=== PATIENT | male | born 1940 | race Caucasian/White ===

== ENCOUNTER → 2017-01-07 | Outpatient (CLI) | payer MEDICARE, BC | LOC: MW.CHPS 08:00 | PROVIDERS: ATTEND Plastic Surgery | DX: L82.0 Inflamed seborrheic keratosis (principal); L57.0 Actinic keratosis | CPT/HCPCS: 17000; 17003; 17110; 99202 ==

== ENCOUNTER 2017-10-25 14:56 | Observation (INO) | payer MEDICARE, BC ==
[2017-10-25] MEDS ORDERED: Sodium Chloride 0.9% 10 ML Syringe FLUSH PRN (15:37)
[2017-10-25] MEDS ORDERED: Sodium Chloride 0.9% 2.5 ML Syringe FLUSH PRN (15:37)
[2017-10-25] MEDS ORDERED: Sodium Chloride 0.9% 1,000 ML IV ONE (15:38)
[2017-10-25] MEDS ORDERED: Ondansetron 4 MG/2 ML SDV IVPUSH ONE (15:38)
[2017-10-25] MEDS ORDERED: Albuterol/Ipratropium 3.0-0.5 MG/3 ML Neb Soln NEB ONE (15:39)
--- NOTE | 2017-10-25 15:44 | EDM.PDOC ---
ED HPI GENERAL MEDICAL PROBLEM - General Chief Complaint: Respiratory Problem Stated Complaint: COUGH/CONGESTION/DIARRHEA/WEAK Time Seen by Provider: 10/25/17 15:26 - History of Present Illness INITIAL COMMENTS - FREE TEXT/NARRATIVE: HISTORY AND PHYSICAL: History of present illness: The patient is a 76-year-old male who follows with Dr. Heath at [facility] and has a history of diabetes with oral and insulin medication use, hypertension, prostate cancer and lymphoma both of which are in remission after radiation and chemotherapy and who presents today with a history of multiple episodes of vomiting starting Wednesday, 3 days ago, which occurred mostly after coughing. The patient started developing a cough which would then spasm and trigger him to gag and vomit. He has not been eating and drinking very much because he is afraid of vomiting with the cough. The patient states that he really has not been vomiting much without the cough. He has some diffuse abdominal pain which started after the coughing episodes and he says that his muscles hurt from the cough and feels bloated and has not had any bowel issues until the last 24 hours when he has had copious amount of watery diarrhea without black or blood. Patient has had no urinary complaints no fever at home no runny nose and no sore throat. The cough is hacking and is productive of phlegm which is not green or bloody. He has been exposed to other friends and neighbors who have upper respiratory symptoms and GI problems. Please note that the patient has felt so weak today that he has done down to his hands and knees on 2 occasions without syncopal arising or completely falling to the ground. He has had no trauma with a result of these events and no pain as a result of these events. He has no headache. The patient did get his influenza shot in July Review of systems: As per history of present illness and below otherwise all systems reviewed and negative. Past medical history: As per history of present illness and as reviewed below otherwise noncontributory. Surgical history: As per history of present illness and as reviewed below otherwise noncontributory. Social history: No reported history of drug or alcohol abuse. Family history: As per history of present illness and as reviewed below otherwise noncontributory. Physical exam: Gen.: Well-developed well-nourished man speaking in full sentences without breathlessness vital signs of been noted by me. HEENT: Atraumatic, normocephalic, pupils reactive, negative for conjunctival pallor or scleral icterus, mucous membranes tacky, throat clear, neck supple, nontender, trachea midline. There is no cervical adenopathy or nuchal rigidity Lungs: Clear to auscultation with some coarse breath sounds at the bases bilaterally and some fine scattered wheezing without work of breathing, breath sounds equal bilaterally, chest nontender. Heart: S1S2, regular rhythm but slightly tachycardic rate of my evaluation and no overt murmurs Abdomen: Soft, nondistended, nontender. There is no rebound or guarding but there is tympany on percussion in the upper abdominal area Negative for masses or hepatosplenomegaly. Negative for costovertebral tenderness. Pelvis: Stable nontender. Genitourinary: Deferred. Rectal: Deferred. Extremities: Atraumatic, negative for cords or calf pain. Neurovascular unremarkable. Full range of motion without any defects or deficits Neuro: Awake, alert, oriented. Cranial nerves II through XII unremarkable. Cerebellum unremarkable. Motor and sensory unremarkable throughout. Exam nonfocal. On my exam in the bed the patient has normal motor 5/5 throughout Back: There are no midline step-offs tenderness defects of the cervical thoracic or lumbar spine and no soft tissue evidence of any trauma Diagnostics: CBC CMP UA urine culture if indicated lactic acid influenza orthostatic vitals stool for culture chest x-ray in one view abdominal x-ray Therapeutics: IV fluids Zofran and Phenergan with codeine Tamiflu Today's renal function was compared to labs performed on November 182016, proximally one year ago, which revealed a BUN of 32 and a creatinine 1.4. Today' s BUN of 42 and creatinine of 1.9 indicates a level of dehydration correlating with the patient's poor by mouth intake and vomiting and diarrhea. Patient and at bedside are aware of all testing results including the positive influenza A and the patient says that after the DuoNeb and the IV fluids he starting to feel somewhat better. He has not produced a urine or a stool sample as of yet for testing. The patient and both feel comfortable with going home and I discussed this case with Dr. Lundy at 1721 PM and he accepts the patient for observation. Will give the patient a dose of Phenergan with codeine for the cough as well as Tamiflu. Impression: Influenza A positive, posttussive emesis with dehydration, diarrhea Definitive disposition and diagnosis as appropriate pending reevaluation and review of above. - Related Data Allergies Allergy/AdvReac Type Severity Reaction Status Date / Time No Known Allergies Allergy Verified 10/25/17 15:27 Past Medical History Cardiovascular History: Reports: High Cholesterol, Hypertension Respiratory History: Reports: Sleep Apnea Other Respiratory History: uses cpap Genitourinary History: Reports: Other (See Below) Other Genitourinary History: ureteral stent Endocrine/Metabolic History: Reports: Diabetes, Type II Oncologic (Cancer) History: Reports: Other (See Below) Other Oncologic History: prostate CA, Follicular Lymphoma - Infectious Disease History Infectious Disease History: Reports: Chicken Pox, Mumps Social & Family History - Family History Family Medical History: Noncontributory - Tobacco Use Smoking Status *Q: Never Smoker - Caffeine Use Caffeine Use: Reports: Coffee - Recreational Drug Use Recreational Drug Use: No ED ROS GENERAL - Review of Systems Review Of Systems: ROS reveals no pertinent complaints other than HPI. ED EXAM, GENERAL - Physical Exam Exam: See Below (See dictation) Course - Vital Signs Last Recorded V/S: Last Vital Signs Temp 35.8 C 10/25/17 15:22 Pulse 104 H 10/25/17 15:22 Resp 18 10/25/17 15:22 BP 115/69 10/25/17 15:22 Pulse Ox 98 10/25/17 15:37 Orthostatic Blood Pressure [ 117/66 Standing] Orthostatic Blood Pressure [ 120/69 Supine] - Orders/Labs/Meds Orders: Active Orders 24 hr Category Date Time Status Blood Glucose Check, Bedside [RC] ONETIME Care 10/25/17 15:37 Active Cardiac Monitoring [RC] . DIRECTED Care 10/25/17 15:37 Active Orthostatic Vital Signs [RC] ASDIRECTED Care 10/25/17 15:39 Active Oxygen Therapy, ED [RC] ASDIRECTED Care 10/25/17 15:37 Active Pulse Oximetry [RC] ASDIRECTED Care 10/25/17 15:37 Active RT Aerosol Therapy [RC] ASDIRECTED Care 10/25/17 15:40 Active Abdomen 1V Upright [CR] Stat Exams 10/25/17 15:38 Taken Chest 2V [CR] Stat Exams 10/25/17 15:38 Taken CULTURE STOOL + CAMPY+SHIGATOX [RM] Stat Lab 10/25/17 15:37 Uncollected UA W/MICROSCOPIC [URIN] Stat Lab 10/25/17 15:37 Uncollected Sodium Chloride 0.9% [Saline Flush] Med 10/25/17 15:37 Active 10 ml FLUSH ASDIRECTED PRN Sodium Chloride 0.9% [Saline Flush] Med 10/25/17 15:37 Active 2.5 ml FLUSH ASDIRECTED PRN Saline Lock Insert [OM.PC] Stat Oth 10/25/17 15:37 Ordered Medication Orders Sodium Chloride (Saline Flush) 10 ml FLUSH ASDIRECTED PRN PRN Reason: Keep Vein Open Last Admin: 10/25/17 16:11 Dose: 10 ml Sodium Chloride (Saline Flush) 2.5 ml FLUSH ASDIRECTED PRN PRN Reason: Keep Vein Open Last Admin: 10/25/17 16:11 Dose: 2.5 ml Labs: Laboratory Tests 10/25/17 10/25/17 10/25/17 Range/Units 15:40 15:46 15:46 WBC 4.15 (4.0-11.0) K/uL RBC 4.95 (4.50-5.90) M/uL Hgb 15.2 (13.0-17.0) g/dL Hct 43.6 (38.0-50.0) % MCV 88.1 (80.0-98.0) fL MCH 30.7 (27.0-32.0) pg MCHC 34.9 (31.0-37.0) g/dL RDW Std Deviation 44.5 (28.0-62.0) fl RDW Coeff of [place] 14 (11.0-15.0) % Plt Count 161 (150-400) K/uL MPV 9.80 (7.40-12.00) fL Add Manual Diff YES Neutrophils % (Manual) 63 (48.0-80.0) % Band Neutrophils % 1 % Lymphocytes % (Manual) 20 (16.0-40.0) % Monocytes % (Manual) 13 (0.0-15.0) % Eosinophils % (Manual) 1 (0.0-7.0) % Basophils % (Manual) 2 H (0.0-1.5) % Nucleated RBC % 0.0 /100WBC Absolute Seg Neuts 2.6 (1.4-5.7) Band Neutrophils # 0 Lymphocytes # (Manual) 0.8 (0.6-2.4) Monocytes # (Manual) 0.5 (0.0-0.8) Eosinophils # (Manual) 0.0 (0.0-0.7) Basophils # (Manual) 0.1 (0.0-0.1) Nucleated RBCs # 0 K/uL Lactate (0.20-2.00) mmol/L Sodium 135 L (136-146) mmol/L Potassium 4.3 (3.5-5.1) mmol/L Chloride 102 (98-110) mmol/L Carbon Dioxide 19 L (21-31) mmol/L BUN 42 H (6.0-23.0) mg/dL Creatinine 1.9 H (0.6-1.5) mg/dL Est Cr Clr Drug Dosing 36.30 mL/min Estimated GFR (MDRD) 34.6 ml/min Glucose 152 H (60-110) mg/dL POC Glucose 131 H (60-110) mg/dL Calcium 11.1 H (8.8-10.8) mg/dL Total Bilirubin 0.6 (0.1-1.5) mg/dL AST 49 H (5-40) IU/L ALT 38 (8-54) IU/L Alkaline Phosphatase 44 (40-150) Total Protein 7.6 (6.0-8.0) g/dL Albumin 4.1 (3.4-4.8) g/dL Globulin 3.5 (2.0-3.5) g/dL Albumin/Globulin Ratio 1.2 L (1.3-2.8) 10/25/17 Range/Units 15:46 WBC (4.0-11.0) K/uL RBC (4.50-5.90) M/uL Hgb (13.0-17.0) g/dL Hct (38.0-50.0) % MCV (80.0-98.0) fL MCH (27.0-32.0) pg MCHC (31.0-37.0) g/dL RDW Std Deviation (28.0-62.0) fl RDW Coeff of [place] (11.0-15.0) % Plt Count (150-400) K/uL MPV (7.40-12.00) fL Add Manual Diff Neutrophils % (Manual) (48.0-80.0) % Band Neutrophils % % Lymphocytes % (Manual) (16.0-40.0) % Monocytes % (Manual) (0.0-15.0) % Eosinophils % (Manual) (0.0-7.0) % Basophils % (Manual) (0.0-1.5) % Nucleated RBC % /100WBC Absolute Seg Neuts (1.4-5.7) Band Neutrophils # Lymphocytes # (Manual) (0.6-2.4) Monocytes # (Manual) (0.0-0.8) Eosinophils # (Manual) (0.0-0.7) Basophils # (Manual) (0.0-0.1) Nucleated RBCs # K/uL Lactate 1.3 (0.20-2.00) mmol/L Sodium (136-146) mmol/L Potassium (3.5-5.1) mmol/L Chloride (98-110) mmol/L Carbon Dioxide (21-31) mmol/L BUN (6.0-23.0) mg/dL Creatinine (0.6-1.5) mg/dL Est Cr Clr Drug Dosing mL/min Estimated GFR (MDRD) ml/min Glucose (60-110) mg/dL POC Glucose (60-110) mg/dL Calcium (8.8-10.8) mg/dL Total Bilirubin (0.1-1.5) mg/dL AST (5-40) IU/L ALT (8-54) IU/L Alkaline Phosphatase (40-150) Total Protein (6.0-8.0) g/dL Albumin (3.4-4.8) g/dL Globulin (2.0-3.5) g/dL Albumin/Globulin Ratio (1.3-2.8) Meds: Medications Generic Name Dose Route Start Last Admin Trade Name Freq PRN Reason Stop Dose Admin Sodium Chloride 10 ml 10/25/17 15:37 10/25/17 16:11 Saline Flush FLUSH 10 ml ASDIRECTED PRN Administration Keep Vein Open Sodium Chloride 2.5 ml 10/25/17 15:37 10/25/17 16:11 Saline Flush FLUSH 2.5 ml ASDIRECTED PRN Administration Keep Vein Open Discontinued Medications Generic Name Dose Route Start Last Admin Trade Name Freq PRN Reason Stop Dose Admin Albuterol/Ipratropium 3 ml 10/25/17 15:39 10/25/17 16:10 Duoneb 3.0-0.5 Mg/3 Ml NEB 10/25/17 15:40 3 ml ONETIME ONE Administration Sodium Chloride 1,000 mls @ 999 mls/hr 10/25/17 15:38 10/25/17 16:11 Normal Saline IV 10/25/17 16:38 999 mls/hr STAT ONE Administration Ondansetron HCl 4 mg 10/25/17 15:38 10/25/17 16:11 Zofran IVPUSH 10/25/17 15:39 4 mg ONETIME ONE Administration Oseltamivir Phosphate 75 mg 10/25/17 17:17 Tamiflu PO 10/25/17 17:18 ONETIME ONE Promethazine HCl/Codeine 10 ml 10/25/17 17:17 Phenergan With Codeine PO 10/25/17 17:18 ONETIME ONE Departure - Departure Time of Disposition: 17:24 Disposition: Refer to Observation Condition: Good Clinical Impression: Diarrhea, Post-tussive vomiting, Influenza A, Dehydration - Discharge Information Referrals: Anibal Heath MD [Primary Care Provider] - Forms: ED Department Discharge - My Orders Last 24 Hours: My Active Orders 10/25/17 15:37 Blood Glucose Check, Bedside [RC] ONETIME Cardiac Monitoring [RC] . DIRECTED Oxygen Therapy, ED [RC] ASDIRECTED Pulse Oximetry [RC] ASDIRECTED CULTURE STOOL + CAMPY+SHIGATOX [RM] Stat UA W/MICROSCOPIC [URIN] Stat Sodium Chloride 0.9% [Saline Flush] 10 ml FLUSH ASDIRECTED PRN Sodium Chloride 0.9% [Saline Flush] 2.5 ml FLUSH ASDIRECTED PRN Saline Lock Insert [OM.PC] Stat 10/25/17 15:38 Abdomen 1V Upright [CR] Stat Chest 2V [CR] Stat 10/25/17 15:39 Orthostatic Vital Signs [RC] ASDIRECTED 10/25/17 15:40 RT Aerosol Therapy [RC] ASDIRECTED - Assessment/Plan Last 24 Hours: My Active Orders 10/25/17 15:37 Blood Glucose Check, Bedside [RC] ONETIME Cardiac Monitoring [RC] . DIRECTED Oxygen Therapy, ED [RC] ASDIRECTED Pulse Oximetry [RC] ASDIRECTED CULTURE STOOL + CAMPY+SHIGATOX [RM] Stat UA W/MICROSCOPIC [URIN] Stat Sodium Chloride 0.9% [Saline Flush] 10 ml FLUSH ASDIRECTED PRN Sodium Chloride 0.9% [Saline Flush] 2.5 ml FLUSH ASDIRECTED PRN Saline Lock Insert [OM.PC] Stat 10/25/17 15:38 Abdomen 1V Upright [CR] Stat Chest 2V [CR] Stat 10/25/17 15:39 Orthostatic Vital Signs [RC] ASDIRECTED 10/25/17 15:40 RT Aerosol Therapy [RC] ASDIRECTED
[2017-10-25] MEDS ORDERED: Codeine/Promethazine 10-6.25 MG/5 ML Syrup 5 ML UD Cup PO ONE (17:17)
[2017-10-25] MEDS ORDERED: Oseltamivir 75 MG Cap PO ONE (17:17)
[2017-10-25] MEDS ORDERED: Sodium Chloride 0.9% 1,000 ML IV SCH (17:45)
[2017-10-25] MEDS ORDERED: Ondansetron 4 MG/2 ML SDV IVPUSH PRN ×2 (20:20→23:02)
[2017-10-25] MEDS ORDERED: Insulin Glargine,Human Rec. Analog 100 Units/ML 3 ML Pen SUBCUT SCH (21:00)
[2017-10-25] MEDS: Metoprolol Tartrate 50 MG Tab PO SCH (21:47)
[2017-10-25] MEDS: Sodium Chloride 0.9% 1,000 ML IV SCH (21:51)
--- NOTE | 2017-10-25 23:27 | PCM.HP ---
H&P History of Present Illness - General Admit Problem/Dx: Admission Diagnosis/Problem Admission Diagnosis/Problem Dehydration - History of Present Illness Initial Comments - Free Text/Narative: 76 yo male who presents with three day history of cough, fever and myalgias. Patient reports cough spasms so severe it causes him to vomiting. He reports poor apatite and has not been drinking much. - Related Data Allergies/Adverse Reactions: Allergies Allergy/AdvReac Type Severity Reaction Status Date / Time No Known Allergies Allergy Verified 10/25/17 15:27 Home Medications: Home Meds Aspirin [Adult Low Dose Aspirin EC] 81 mg PO DAILY 10/25/17 [History] Gemfibrozil [Lopid] 600 mg PO BID 10/25/17 [History] Glimepiride [Amaryl] 2 mg PO BIDMEALS 10/25/17 [History] Insulin Glarg,Human.Rec.Analog [LantUS Solostar] 36 units SUBCUT BEDTIME [History] Lisinopril [Zestril] 20 mg PO DAILY 10/25/17 [History] Metoprolol Tartrate [Lopressor] 50 mg PO BID 10/25/17 [History] Kiel-3/DHA/Epa/Fish Oil [Fish Oil 1,000 mg Softgel] 1,000 mg PO DAILY 10/25/17 [History] Omeprazole Magnesium [Prilosec Otc] 20 mg PO DAILY 10/25/17 [History] metFORMIN HCl [Glucophage] 1,000 mg PO BID 10/25/17 [History] Past Medical History HEENT History: Reports: Other (See Below) Other HEENT History: uses contacts Cardiovascular History: Reports: High Cholesterol, Hypertension Respiratory History: Reports: Sleep Apnea Other Respiratory History: uses cpap Genitourinary History: Reports: Other (See Below) Other Genitourinary History: ureteral stent Endocrine/Metabolic History: Reports: Diabetes, Type II Oncologic (Cancer) History: Reports: Other (See Below) Other Oncologic History: prostate CA, Follicular Lymphoma - Infectious Disease History Infectious Disease History: Reports: Chicken Pox, Mumps Social & Family History - Family History Family Medical History: Noncontributory - Tobacco Use Smoking Status *Q: Never Smoker Second Hand Smoke Exposure: No - Caffeine Use Caffeine Use: Reports: Coffee - Recreational Drug Use Recreational Drug Use: No H&P Review of Systems - Review of Systems: Review Of Systems: ROS reveals no pertinent complaints other than HPI. Exam - Exam Exam: See Below - Vital Signs Vital Signs: Last Vital Signs Temp 37.1 C 10/25/17 21:00 Pulse 110 H 10/25/17 21:47 Resp 18 10/25/17 21:00 BP 113/60 10/25/17 21:47 Pulse Ox 94 L 10/25/17 21:00 Weight: 108.4 kg - Exam General: Alert, Oriented HEENT: Mucosa Moist & [place] Lungs: Clear to Auscultation, Normal Respiratory Effort Cardiovascular: Regular Rate, Regular Rhythm GI/Abdominal Exam: Soft, Non-Tender Extremities: No Pedal Edema Skin: Warm, Dry, Intact Neurological: No: Focal Deficit - Patient Data Lab Results Last 24 hrs: Laboratory Results - last 24 hr 10/25/17 10/25/17 Range/Units 21:30 21:32 POC Glucose 71 (60-110) mg/dL Urine Color YELLOW Urine Appearance CLEAR Urine pH 5.0 (5.0-8.0) Ur Specific [place] 1.025 (1.001-1.035) Urine Protein TRACE (NEGATIVE) mg/dL Urine Glucose (UA) NEGATIVE (NEGATIVE) mg/dL Urine Ketones NEGATIVE (NEGATIVE) mg/dL Urine Occult Blood TRACE-INTACT (NEGATIVE) Urine Nitrite NEGATIVE (NEGATIVE) Urine Bilirubin NEGATIVE (NEGATIVE) Urine Urobilinogen 0.2 (<2.0) EU/dL Ur Leukocyte Esterase NEGATIVE (NEGATIVE) Urine RBC 0-2 (0-2/HPF) Urine WBC 0-2 (0-5/HPF) Ur Epithelial Cells RARE (NONE-FEW) Amorphous Sediment FEW (NEGATIVE) Urine Bacteria FEW (NEGATIVE) Result Diagrams: 10/25/17 15:46 10/25/17 15:46 *Q Meaningful Use (ADM) - VTE *Q VTE Criteria *Q: - Stroke *Q Stroke Criteria *Q: - AMI *Q AMI Criteria *Q: Problem List Initiated/Reviewed/Updated: Yes Orders Last 24hrs: Active Orders 24 hr Category Date Time Status Blood Glucose Check, Bedside [RC] TIDAC Care 10/25/17 20:23 Active Oxygen Therapy [RC] PRN Care 10/25/17 23:24 Ordered VTE/DVT Education [RC] PER UNIT ROUTINE Care 10/25/17 23:24 Ordered Vital Signs [RC] Q4H Care 10/25/17 23:24 Ordered ADA Diabetic [[place] [employer] Diet] [DIET Diet 10/26/17 Breakfast Active ] BMP [BASIC METABOLIC PANEL,BMP] [CHEM] Routine Lab 10/26/17 05:00 Ordered CBC WITH AUTO DIFF [HEME] Routine Lab 10/26/17 05:00 Ordered Aspirin [Halfprin] Med 10/26/17 09:00 Active 81 mg PO DAILY Fish Oil/Kiel-3 Fatty Acids [Fish Oil] Med 10/26/17 09:00 Active 1 gm PO DAILY Gemfibrozil [Lopid] Med 10/26/17 08:00 Active 600 mg PO BIDMEALS Heparin Sodium Med 10/26/17 09:00 Ordered 5,000 units SUBCUT Q12HR Insulin Aspart [NovoLOG] Med 10/26/17 07:30 Active See Protocol SUBCUT TIDAC Insulin Glarg,Human.Rec.Analog [LantUS Solostar] Med 10/25/17 21:00 Active 15 units SUBCUT BEDTIME Lisinopril [Prinivil] Med 10/26/17 09:00 Active 20 mg PO DAILY Metoprolol Tartrate [Lopressor] Med 10/25/17 21:00 Active 50 mg PO BID Omeprazole Med 10/26/17 09:00 Active 20 mg PO DAILY Ondansetron [Zofran] Med 10/25/17 23:02 Active 4 mg IVPUSH Q4H PRN Oseltamivir [Tamiflu] Med 10/26/17 06:00 Pending 30 mg PO BID Sodium Chloride 0.9% [Normal Saline] 1,000 ml Med 10/25/17 20:30 Active IV ASDIRECTED Resuscitation Status Routine Resus Stat 10/25/17 23:24 Ordered Medication Orders Aspirin (Halfprin) 81 mg PO DAILY [facility] Fish Oil (Fish Oil) 1 gm PO DAILY [facility] Gemfibrozil (Lopid) 600 mg PO BIDMEALS [facility] Sodium Chloride (Normal Saline) 1,000 mls @ 125 mls/hr IV ASDIRECTED [facility]AUGHN Last Admin: 10/25/17 21:51 Dose: 125 mls/hr Insulin Aspart (Novolog) 0 unit SUBCUT TIDAC [facility]AUGHN PRN Reason: Protocol Insulin Glargine (Lantus Solostar) 15 units SUBCUT BEDTIME [facility]AUGHN Last Admin: 10/25/17 21:46 Dose: 15 units Lisinopril (Prinivil) 20 mg PO DAILY [facility] Metoprolol Tartrate (Lopressor) 50 mg PO BID [facility] Last Admin: 10/25/17 21:47 Dose: 50 mg Omeprazole (Omeprazole) 20 mg PO DAILY [facility] Ondansetron HCl (Zofran) 4 mg IVPUSH Q4H PRN PRN Reason: Nausea/Vomiting Oseltamivir Phosphate (Tamiflu) 30 mg PO BID [facility] Sodium Chloride (Saline Flush) 10 ml FLUSH ASDIRECTED PRN PRN Reason: Keep Vein Open Last Admin: 10/25/17 16:11 Dose: 10 ml Sodium Chloride (Saline Flush) 2.5 ml FLUSH ASDIRECTED PRN PRN Reason: Keep Vein Open Last Admin: 10/25/17 16:11 Dose: 2.5 ml Assessment/Plan Comment:: 76 yo male admitted with influenza. We will monitor overnight, give tamiflu and hydrate with IV fluids.
[2017-10-26] MEDS: Sodium Chloride 0.9% 1,000 ML IV SCH ×2 (01:02→08:29)
[2017-10-26] MEDS: Benzonatate 100 MG Cap PO PRN ×2 (02:39→08:28)
[2017-10-26] MEDS ORDERED: Oseltamivir 75 MG Cap PO SCH (06:00)
[2017-10-26] MEDS ORDERED: Gemfibrozil 600 MG Tab PO SCH (08:00)
[2017-10-26] MEDS: Insulin Aspart 100 Units/ML 3 ML Pen SUBCUT SCH ×2 (08:01→12:47)
[2017-10-26] MEDS: Metoprolol Tartrate 50 MG Tab PO SCH (08:04)
[2017-10-26] MEDS ORDERED: Lisinopril 10 MG Tab PO SCH (09:00)
[2017-10-26] MEDS ORDERED: Fish Oil/Omega-3 Fatty Acids 1 Gm Cap PO SCH (09:00)
[2017-10-26] MEDS ORDERED: Omeprazole 20 MG Cap.CR PO SCH (09:00)
[2017-10-26] MEDS ORDERED: Oseltamivir Phosphate 30 MG Capsule PO SCH (09:00)
[2017-10-26] MEDS ORDERED: Aspirin 81 MG Tab.EC PO SCH (09:00)
[2017-10-26] MEDS ORDERED: Heparin Sodium 5,000 Units/ML Vial SUBCUT SCH (09:00)
--- NOTE | 2017-10-26 12:07 | PCM.DCSUM1 ---
Discharge Summary - Hospital Course Brief History: 76 [facility] type 2, HTN, and CKD presented to the ED with three day history of cough, fever and myalgias. Patient reports cough spasms so severe it causes him to vomit. He reports poor appetite and has not been drinking much. Reports much of his family around his has been sick as well. Labwork WNL in ED. Influenza A positive. He was started on Tamiflu and admitted due to dehydration and FADUMO on CKD and influenza positive. - Discharge Data Discharge Date: 10/26/17 Discharge Disposition: Home, Self-Care 01 Condition: Good - Discharge Diagnosis/Problem(s) (1) [id number] kidney injury SNOMED Code(s): 170844498 ICD Code: N17.9 - ACUTE KIDNEY FAILURE, UNSPECIFIED; N18.9 - CHRONIC KIDNEY DISEASE, UNSPECIFIED Status: Acute Current Visit: Yes (2) Dehydration SNOMED Code(s): 27376000 ICD Code: E86.0 - DEHYDRATION Status: Acute Current Visit: Yes (3) Diarrhea SNOMED Code(s): 77115036 ICD Code: R19.7 - DIARRHEA, UNSPECIFIED Status: Acute Current Visit: Yes (4) Influenza A SNOMED Code(s): 511066112 ICD Code: J10.1 - FLU DUE TO OTH IDENT INFLUENZA VIRUS W OTH RESP MANIFEST Status: Acute Current Visit: Yes (5) Post-tussive vomiting SNOMED Code(s): 661387983 ICD Code: R11.10 - VOMITING, UNSPECIFIED Status: Acute Current Visit: Yes - Patient Instructions Diet: Heart Healthy Diet, Drink 8-10+ Glasses/Day Activity: Rest and Relax Today (For Next 3-5 days) Driving: May Drive Today Showering/Bathing: May Shower Notify Provider of: Fever, Increased Pain, Swelling and Redness, Drainage, Nausea and/or Vomiting - Discharge Plan Prescriptions/Med Rec: Benzonatate [Tessalon Perles] 100 mg PO TID PRN #30 cap PRN Reason: Cough Oseltamivir [Tamiflu] 30 mg PO BID #11 cap Home Medications: Home Meds Aspirin [Adult Low Dose Aspirin EC] 81 mg PO DAILY 10/25/17 [History] Gemfibrozil [Lopid] 600 mg PO BID 10/25/17 [History] Glimepiride [Amaryl] 2 mg PO BIDMEALS 10/25/17 [History] Insulin Glarg,Human.Rec.Analog [LantUS Solostar] 36 units SUBCUT BEDTIME [History] Lisinopril [Zestril] 20 mg PO DAILY 10/25/17 [History] Metoprolol Tartrate [Lopressor] 50 mg PO BID 10/25/17 [History] [place]-3/DHA/Epa/Fish Oil [Fish Oil 1,000 mg Softgel] 1,000 mg PO DAILY 10/25/17 [History] Omeprazole Magnesium [Prilosec Otc] 20 mg PO DAILY 10/25/17 [History] metFORMIN HCl [Glucophage] 1,000 mg PO BID 10/25/17 [History] Benzonatate [Tessalon Perles] 100 mg PO TID PRN #30 cap 10/26/17 [Rx] Oseltamivir [Tamiflu] 30 mg PO BID #11 cap 10/26/17 [Rx] Patient Handouts: Influenza, Adult, [id number]-Kwsj, Oseltamivir capsules, Benzonatate capsules Referrals: Anibal Heath MD [Primary Care Provider] - 11/04/17 12:30 pm - Discharge Summary/Plan Comment DC Time >30 min.: No Discharge Summary/Plan Comment: Discharge Diagnoses: Influenza A positive General malaise HTN DM Type 2 CKD, baseline BUN 20s and Cr 1.4-1.6 Dawit was admitted and monitored overnight. BUN and Cr improved this morning with IVF hydration. VS are stable and patient feeling better today. He reports feeling a little stronger. He is ready for discharge home. He was encouraged to rest and relax for next 3-5 days as he is healing from Influenza. He will be prescribed Tamiflu 30 mg BID for 5 more days and given Tessalon Pearls to help with cough. He was eating much better today and keep fluids down. No further vomiting. He was encouraged to drink plenty of fluids. He will be set up to follow up with PCP, Dr Heath in 1 week to insure he is improving appropriately. He is to return to clinic or ED if concerns should arise. - General Info Date of Service: 10/26/17 Admission Dx/Problem (Free Text: Admission Diagnosis/Problem Admission Diagnosis/Problem Dehydration Subjective Update: Feeling better this morning, has some strength back. Cough continues but improved. No further diarrhea. No abdominal pain. Satting well on RA. No chest pain or SOB Functional Status: Reports: Pain Controlled, Tolerating Diet, Ambulating, Urinating - Review of Systems General: Reports: Fatigue, Malaise. Denies: Fever HEENT: Reports: Sinus Congestion, Sore Throat. Denies: Visual Changes Pulmonary: Reports: Cough. Denies: Shortness of Breath, Sputum, Wheezing Cardiovascular: Reports: No Symptoms. Denies: Chest Pain, Dyspnea on Exertion, Edema, Lightheadedness Gastrointestinal: Reports: No Symptoms. Denies: Abdominal Pain, Diarrhea, Nausea, Vomiting Genitourinary: Reports: No Symptoms. Denies: Dysuria, Frequency, Burning Musculoskeletal: Reports: No Symptoms. Denies: Neck Pain Neurological: Reports: No Symptoms. Denies: Confusion Psychiatric: Reports: No Symptoms. Denies: Confusion - Patient Data Vitals - Most Recent: Last Vital Signs Temp 97.6 F 10/26/17 11:24 Pulse 78 10/26/17 11:24 Resp 20 10/26/17 11:24 BP 114/64 10/26/17 11:24 Pulse Ox 97 10/26/17 11:24 Weight - Most Recent: 108.4 kg I&O - Last 24 hours: Intake & Output 10/25/17 10/26/17 10/26/17 22:59 06:59 14:59 Intake Total 1917 Output Total 250 Balance 1667 Lab Results - Last 24 hrs: Laboratory Results - last 24 hr 10/25/17 10/25/17 10/26/17 Range/Units 21:30 21:32 04:51 WBC 3.09 L (4.0-11.0) K/uL RBC 4.38 L (4.50-5.90) M/uL Hgb 13.0 (13.0-17.0) g/dL Hct 38.7 (38.0-50.0) % MCV 88.4 (80.0-98.0) fL MCH 29.7 (27.0-32.0) pg MCHC 33.6 (31.0-37.0) g/dL RDW Std Deviation 44.7 (28.0-62.0) fl RDW Coeff of [place] 14 (11.0-15.0) % Plt Count 150 (150-400) K/uL MPV 9.70 (7.40-12.00) fL Neut % (Auto) 59.9 (48.0-80.0) % Lymph % (Auto) 25.2 (16.0-40.0) % Terrell % (Auto) 13.9 (0.0-15.0) % Eos % (Auto) 1.0 (0.0-7.0) % Baso % (Auto) 0.0 (0.0-1.5) % Neut # (Auto) 1.9 (1.4-5.7) K/uL Lymph # (Auto) 0.8 (0.6-2.4) K/uL Terrell # (Auto) 0.4 (0.0-0.8) K/uL Eos # (Auto) 0.0 (0.0-0.7) K/uL Baso # (Auto) 0.0 (0.0-0.1) K/uL Nucleated RBC % 0.0 /100WBC Nucleated RBCs # 0 K/uL Sodium (136-146) mmol/L Potassium (3.5-5.1) mmol/L Chloride (98-110) mmol/L Carbon Dioxide (21-31) mmol/L BUN (6.0-23.0) mg/dL Creatinine (0.6-1.5) mg/dL Est Cr Clr Drug Dosing mL/min Estimated GFR (MDRD) ml/min Glucose (60-110) mg/dL POC Glucose 71 (60-110) mg/dL Calcium (8.8-10.8) mg/dL Urine Color YELLOW Urine Appearance CLEAR Urine pH 5.0 (5.0-8.0) Ur Specific [place] 1.025 (1.001-1.035) Urine Protein TRACE (NEGATIVE) mg/dL Urine Glucose (UA) NEGATIVE (NEGATIVE) mg/dL Urine Ketones NEGATIVE (NEGATIVE) mg/dL Urine Occult Blood TRACE-INTACT (NEGATIVE) Urine Nitrite NEGATIVE (NEGATIVE) Urine Bilirubin NEGATIVE (NEGATIVE) Urine Urobilinogen 0.2 (<2.0) EU/dL Ur Leukocyte Esterase NEGATIVE (NEGATIVE) Urine RBC 0-2 (0-2/HPF) Urine WBC 0-2 (0-5/HPF) Ur Epithelial Cells RARE (NONE-FEW) Amorphous Sediment FEW (NEGATIVE) Urine Bacteria FEW (NEGATIVE) 10/26/17 10/26/17 10/26/17 Range/Units 04:51 06:12 10:59 WBC (4.0-11.0) K/uL RBC (4.50-5.90) M/uL Hgb (13.0-17.0) g/dL Hct (38.0-50.0) % MCV (80.0-98.0) fL MCH (27.0-32.0) pg MCHC (31.0-37.0) g/dL RDW Std Deviation (28.0-62.0) fl RDW Coeff of [place] (11.0-15.0) % Plt Count (150-400) K/uL MPV (7.40-12.00) fL Neut % (Auto) (48.0-80.0) % Lymph % (Auto) (16.0-40.0) % Terrell % (Auto) (0.0-15.0) % Eos % (Auto) (0.0-7.0) % Baso % (Auto) (0.0-1.5) % Neut # (Auto) (1.4-5.7) K/uL Lymph # (Auto) (0.6-2.4) K/uL Terrell # (Auto) (0.0-0.8) K/uL Eos # (Auto) (0.0-0.7) K/uL Baso # (Auto) (0.0-0.1) K/uL Nucleated RBC % /100WBC Nucleated RBCs # K/uL Sodium 135 L (136-146) mmol/L Potassium 4.1 (3.5-5.1) mmol/L Chloride 104 (98-110) mmol/L Carbon Dioxide 21 (21-31) mmol/L BUN 38 H (6.0-23.0) mg/dL Creatinine 1.6 H (0.6-1.5) mg/dL Est Cr Clr Drug Dosing 41.18 mL/min Estimated GFR (MDRD) 42.1 ml/min Glucose 167 H (60-110) mg/dL POC Glucose 156 H 179 H (60-110) mg/dL Calcium 9.8 (8.8-10.8) mg/dL Urine Color Urine Appearance Urine pH (5.0-8.0) Ur Specific [place] (1.001-1.035) Urine Protein (NEGATIVE) mg/dL Urine Glucose (UA) (NEGATIVE) mg/dL Urine Ketones (NEGATIVE) mg/dL Urine Occult Blood (NEGATIVE) Urine Nitrite (NEGATIVE) Urine Bilirubin (NEGATIVE) Urine Urobilinogen (<2.0) EU/dL Ur Leukocyte Esterase (NEGATIVE) Urine RBC (0-2/HPF) Urine WBC (0-5/HPF) Ur Epithelial Cells (NONE-FEW) Amorphous Sediment (NEGATIVE) Urine Bacteria (NEGATIVE) Med Orders - Current: Current Medications Aspirin (Halfprin) 81 mg PO DAILY [facility] Last Admin: 10/26/17 08:04 Dose: 81 mg Benzonatate (Tessalon Perles) 100 mg PO Q6H PRN PRN Reason: Cough Last Admin: 10/26/17 08:28 Dose: 100 mg Fish Oil (Fish Oil) 1 gm PO DAILY [facility] Last Admin: 10/26/17 08:04 Dose: 1 gm Gemfibrozil (Lopid) 600 mg PO BIDMEALS [facility] Last Admin: 10/26/17 08:25 Dose: 600 mg Heparin Sodium (Porcine) (Heparin Sodium) 5,000 units SUBCUT Q12HR [facility] Last Admin: 10/26/17 08:07 Dose: 5,000 units Sodium Chloride (Normal Saline) 1,000 mls @ 125 mls/hr IV ASDIRECTED [facility] Last Admin: 10/26/17 08:29 Dose: 125 mls/hr Insulin Aspart (Novolog) 0 unit SUBCUT TIDAC [facility] PRN Reason: Protocol Last Admin: 10/26/17 08:01 Dose: 1 unit Insulin Glargine (Lantus Solostar) 15 units SUBCUT BEDTIME [facility] Last Admin: 10/25/17 21:46 Dose: 15 units Lisinopril (Prinivil) 20 mg PO DAILY [facility] Last Admin: 10/26/17 08:05 Dose: 20 mg Metoprolol Tartrate (Lopressor) 50 mg PO BID [facility] Last Admin: 10/26/17 08:04 Dose: 50 mg Omeprazole (Omeprazole) 20 mg PO DAILY [facility] Last Admin: 10/26/17 08:04 Dose: 20 mg Ondansetron HCl (Zofran) 4 mg IVPUSH Q4H PRN PRN Reason: Nausea/Vomiting Oseltamivir Phosphate (Oseltamivir Phosphate) 30 mg PO BID [facility] Last Admin: 10/26/17 08:04 Dose: 30 mg Sodium Chloride (Saline Flush) 10 ml FLUSH ASDIRECTED PRN PRN Reason: Keep Vein Open Last Admin: 10/25/17 16:11 Dose: 10 ml Sodium Chloride (Saline Flush) 2.5 ml FLUSH ASDIRECTED PRN PRN Reason: Keep Vein Open Last Admin: 10/25/17 16:11 Dose: 2.5 ml Discontinued Medications Albuterol/Ipratropium (Duoneb 3.0-0.5 Mg/3 Ml) 3 ml NEB ONETIME ONE Stop: 10/25/17 15:40 Last Admin: 10/25/17 16:10 Dose: 3 ml Sodium Chloride (Normal Saline) 1,000 mls @ 999 mls/hr IV STAT ONE Stop: 10/25/17 16:38 Last Admin: 10/25/17 16:11 Dose: 999 mls/hr Sodium Chloride (Normal Saline) 1,000 mls @ 125 mls/hr IV ASDIRECTED [facility] Last Admin: 10/25/17 17:41 Dose: 125 mls/hr Ondansetron HCl (Zofran) 4 mg IVPUSH ONETIME ONE Stop: 10/25/17 15:39 Last Admin: 10/25/17 16:11 Dose: 4 mg Ondansetron HCl (Zofran) 4 mg IVPUSH Q3H PRN PRN Reason: Nausea/Vomiting Oseltamivir Phosphate (Tamiflu) 75 mg PO ONETIME ONE Stop: 10/25/17 17:18 Last Admin: 10/25/17 17:42 Dose: 75 mg Oseltamivir Phosphate (Tamiflu) 75 mg PO BID [facility] Promethazine HCl/Codeine (Phenergan With Codeine) 10 ml PO ONETIME ONE Stop: 10/25/17 17:18 Last Admin: 10/25/17 18:19 Dose: 10 ml - Exam Quality Assessment: Denies: Supplemental Oxygen General: Reports: Alert, Oriented, Cooperative, No Acute Distress Neck: Reports: Supple Lungs: Reports: Clear to Auscultation, Normal Respiratory Effort Cardiovascular: Reports: Regular Rate, Regular Rhythm GI/Abdominal Exam: Normal Bowel Sounds, Soft, Non-Tender, No Organomegaly, No Distention, No Abnormal Bruit, No Mass, Pelvis Stable Back Exam: Reports: Normal Inspection, Full Range of Motion Extremities: Normal Inspection, Normal Range of Motion, Non-Tender, No Pedal Edema, Normal Capillary Refill Neurological: Reports: No New Focal Deficit Psy/Mental Status: Reports: Alert, Normal Affect, Normal Mood *Q Meaningful Use (DIS) - VTE *Q VTE Criteria *Q: - Stroke *Q Stroke Criteria *Q: - AMI *Q AMI Criteria *Q:
--- NOTE | 2017-10-26 20:34 | CR ---
EXAM DATE: 10/25/17 PATIENT'S AGE: 76 Patient: RONNY CORRAL Facility: [place], [place] Site . Site : 1940 Study: XRay Abdomen Upright [id number]/[id number] 4:41:04 PM Ordering Physician: Michael Bagley Final Report: INDICATION: PAIN Flat and upright abdomen Findings/Impression: There is a non-specific bowel gas pattern with no findings for ileus or obstruction. Air throughout large and small bowel with some upper normal small bowel loops. No free air or significant air-fluid levels. Lung bases clear. No abnormal densities for renal calculi. Osseous structures unremarkable. Surgical clips periphery of visualized pelvis. Left hip prosthesis incompletely included in the field of view. Dictated by: Lincoln Wick MD @ 10/25/2017 16:52:53 (Electronic Signature) Report Signed by Proxy. YUN
--- NOTE | 2017-10-26 20:35 | CR ---
EXAM DATE: 10/25/17 PATIENT'S AGE: 76 Patient: RONNY CORRAL Facility: [place], [place] Site . Site : 1940 Study: XRay Chest [id number]/1/2018 4:42:47 PM Ordering Physician: Michael Bagley Final Report: INDICATION: PAIN/SOB COMPARISON: November, 2 View Chest. Findings: The lungs are clear. Pulmonary vascularity, mediastinum and cardiac silhouette are within normal limits. No effusions and no pneumothorax. Osseous structures appear unremarkable. Impression: No evidence of acute cardiopulmonary disease. Dictated by: Lincoln Wick MD @ 10/25/2017 16:54:01 (Electronic Signature) Report Signed by Proxy. YUN
== END 2017-10-26 15:30 | disposition home or self-care (01) ==
LOC: MW.ED 14:56 → MW.MS 17:25
PROVIDERS: ADMIT Internal Medicine; ATTEND Internal Medicine
DX: J10.1 Influenza due to other identified influenza virus with other respiratory manifestations (principal); I12.9 Hypertensive chronic kidney disease with stage 1 through stage 4 chronic kidney disease, or unspecified chronic kidney disease; E11.22 Type 2 diabetes mellitus with diabetic chronic kidney disease; N18.9 Chronic kidney disease, unspecified; N17.9 Acute kidney failure, unspecified; E78.00 Pure hypercholesterolemia, unspecified; G47.30 Sleep apnea, unspecified; R19.7 Diarrhea, unspecified; R11.10 Vomiting, unspecified; R53.81 Other malaise; Z79.82 Long term (current) use of aspirin; Z79.4 Long term (current) use of insulin; Z79.899 Other long term (current) drug therapy; Z99.89 Dependence on other enabling machines and devices; Z85.72 Personal history of non-Hodgkin lymphomas; Z85.46 Personal history of malignant neoplasm of prostate; Z96.0 Presence of urogenital implants
CPT/HCPCS: 36415; 71046; 74018; 80048; 80053; 81001; 82962; 83605; 85025; 87804; 94640; 96361; 96374; 99285; A9270; J1644; J1815; J2405; J7040; 96372; G0378